=== PATIENT | female | born 1975 | race Caucasian/White ===

== ENCOUNTER → 2017-06-13 | Outpatient (CLI) | payer OTHER ==
[~2017-06-13] MED LIST: GADOBUTROL 7.5 MMOL/7.5 ML VIAL IV ONE; SERT25TA PO
--- NOTE | 2017-06-13 15:11 | RAD ---
MRI Brain with and without contrast History:Chronic left ear tinnitus, migraines, worse last 8 months Technique: Multiplanar, multi sequential pre and postcontrast MR imaging was performed of the brain. Contrast: 5 cc Gadavist Comparison: None Findings: There is no evidence of recent infarct or cytotoxic edema. The ventricles, sulci, and cisterns are within normal limits in size and configuration. There is no significant midline shift, intraaxial mass effect, or focal abnormal extra-axial fluid collection. There is no significant signal abnormality of the brain parenchyma. There is no nodular parenchymal or leptomeningeal enhancement. There is preservation of the major intracranial flow-voids at the skull base. The cerebellar tonsils are normal in location. There is no significant abnormality of the pineal gland or pituitary gland. There is negligible patchy ethmoid air cell mucosal thickening, also of the inferior right maxillary sinus. The mastoid air cells are aerated. There is preserved marrow signal of the clivus. Small focus of nonspecific decreased signal on all sequences of the right parietal scalp is not associated with significant enhancement. Impression: 1. There is no significant intracranial abnormality. Electronically signed by: Jona Mejia MD (06/13/2017 3:08 PM) [id number]
== END | disposition home or self-care (01) ==
LOC: MRI 12:32
PROVIDERS: ATTEND Family Medicine
DX: G43.909 Migraine, unspecified, not intractable, without status migrainosus (principal); I10 Essential (primary) hypertension
CPT/HCPCS: 70553; A9585

== ENCOUNTER → 2017-10-04 | Outpatient (CLI) | payer OTHER | END | disposition home or self-care (01) | LOC: PCVCCLINIC 10:58 | DX: E78.5 Hyperlipidemia, unspecified (principal); R94.31 Abnormal electrocardiogram [ECG] [EKG]; Z82.49 Family history of ischemic heart disease and other diseases of the circulatory system; Z88.0 Allergy status to penicillin; Z79.899 Other long term (current) drug therapy | CPT/HCPCS: 80061; 93005; G0463 ==

== ENCOUNTER → 2017-10-05 | Outpatient (CLI) | payer OTHER | END | disposition home or self-care (01) | LOC: PCVCIMAG 10:45 | DX: E78.5 Hyperlipidemia, unspecified (principal); R94.31 Abnormal electrocardiogram [ECG] [EKG]; Z82.49 Family history of ischemic heart disease and other diseases of the circulatory system | CPT/HCPCS: 93325; 93351 ==